=== PATIENT | female | born 1990 | race Asian ===

== ENCOUNTER 2018-02-19 13:58 | Inpatient (IN) | payer OTHER ==
[2018-02-19 14:34] VITALS: BMI 31.1
--- NOTE | 2018-02-19 15:21 | HP ---
COWS - Scale Resting Pulse: 1= [place] 81-100 Sweatin= Chills/Flushing Restless Observation: 3= Extraneous Movement Pupil Size: 2= Moderately Dilated Bone or Joint Aches: 2= Severe Diffuse Aches Runny Nose/ Eye Tearin= Runny Nose/Eyes GI Upset > 30mins: 3= Vomiting/Diarrhea Tremor Observation: 2= Slight Tremor Visible Yawning Observation: 2= >3x During Session Anxiety or Irritability: 2=Irritable/Anxious Goose Flesh Skin: 0=Smooth Skin COWS Score: 20 Admission ROS BHS - HPI Chief Complaint: i need help to stop using percocet Allergies/Adverse Reactions: Allergies Allergy/AdvReac Type Severity Reaction Status Date / Time No Known Allergies Allergy Verified 11/20/15 10:03 History of Present Illness: this 24 years old female with percocet dependence,seeking detox,withdrawal symptom,never been in detox nicotine dependence anxiety,depression,insomnia Exam Limitations: No Limitations - Ebola screening Have you been sick,other than usual withdrawal symptoms: No - Review of Systems Constitutional: Chills, Loss of Appetite, Night Sweats, Changes in sleep, Weakness EENT: reports: Tearing, Nose Congestion Respiratory: reports: No Symptoms reported Cardiac: reports: No Symptoms Reported GI: reports: Diarrhea, Nausea, Vomiting, Abdominal cramping : reports: No Symptoms Reported Musculoskeletal: reports: Back Pain, Joint Pain, Muscle Pain, Joint Stiffness Integumentary: reports: Dryness Neuro: reports: Headache, Tremors Endocrine: reports: No Symptoms Reported Hematology: reports: No Symptoms Reported Psychiatric: reports: No Sypmtoms Reported, Judgement Intact, Mood/Affect Appropiate, Anxious, Depressed (insomnia) Patient History - Patient Medical History Hx Anemia: No Hx Asthma: No Hx Chronic Obstructive Pulmonary Disease (COPD): No Hx Cancer: No Hx Cardiac Disorders: No Hx Congestive Heart Failure: No Hx Hypertension: No Hx Hypercholesterolemia: No Hx Pacemaker: No HX Cerebrovascular Accident: No Hx Seizures: No Hx Dementia: No Hx Diabetes: No Hx Gastrointestinal Disorders: No Hx Liver Disease: No Hx Genitourinary Disorders: No Hx Sexually Transmitted Disorders: No Hx Renal Disease (ESRD): No Hx Thyroid Disease: No Hx Human Immunodeficiency Virus (HIV): No (last 11/08) Hx Hepatitis C: No Hx Depression: Yes Hx Suicide Attempt: No Hx Bipolar Disorder: No Hx Schizophrenia: No Other Medical History: anxiety,depression,insomnia - Patient Surgical History Past Surgical History: No - PPD History Previous Implant?: Yes Documented Results: Negative w/o proof PPD to be Administered?: Yes - Reproductive History Patient is a Female of Child Bearing Age (11 -55 yrs old): Yes Patient : No - Smoking Cessation Smoking history: Never smoked Aproximately how many cigarettes per day: 10 Hx Chewing Tobacco Use: No Initiated information on smoking cessation: Yes 'Breaking Loose' booklet given: 02/19/18 - Substance & Tx. History Hx Alcohol Use: No Hx Substance Use: Yes Substance Use Type: Opiates Hx Substance Use Treatment: No - Substances Abused PERCOCETS Route: Oral Frequency: Daily Amount used: 20-30 PILLS Age of first use: 26 Date of Last Use: 02/17/18 Family Disease History - Family Disease History Family History: Denies Admission Physical Exam [facility] - Vital Signs Vital Signs: Vital Signs - 24 hr 02/19/18 14:30 Temperature 97.2 F L Pulse Rate 91 H Respiratory 20 Rate Blood Pressure 115/72 - Physical General Appearance: Yes: Moderate Distress, Tremorous, Irritable, Sweating, Anxious HEENTM: Yes: Normal ENT Inspection, KYUNG, Pharynx Normal Respiratory: Yes: Within Normal Limits, Lungs Clear, Normal Breath Sounds, No Respiratory Distress Neck: Yes: Within Normal Limits, Supple, Trachea in good position Breast: Yes: Breast Exam Deferred Cardiology: Yes: Within Normal Limits, Regular Rhythm, Regular Rate, S1, S2 Abdominal: Yes: Within Normal Limits, Normal Bowel Sounds, Non Tender, Flat, Soft Genitourinary: Yes: Within Normal Limits Back: Yes: Muscle Spasm Musculoskeletal: Yes: full range of Motion, Back pain, Joint Stiffness, Muscle Pain Extremities: Yes: Tremors Neurological: Yes: design technology teacher II-XII NML intact, Fully Oriented, Alert, Motor Strength 5/5 Integumentary: Yes: Dry Lymphatic: Yes: Within Normal Limits - Diagnostic (1) Opioid dependence with withdrawal Current Visit: Yes Status: Chronic (2) Nicotine dependence Current Visit: Yes Status: Chronic Qualifiers: Nicotine product type: cigarettes Substance use status: uncomplicated Qualified Code(s): F17.210 - Nicotine dependence, cigarettes, uncomplicated (3) Insomnia secondary to depression with anxiety Current Visit: Yes Status: Acute Cleared for Admission [facility] - Detox or Rehab [facility] Level of Care: Medically Managed Detox Regimen/Protocol: Methadone [facility] Breath Alcohol Content Breath Alcohol Content: 0 Urine Pregancy Test - Result Urine Test Results: Negative- NO Line Present Urine Drug Screen - Results Drug Screen Negative: No Urine Drug Screen Results: BZO-Benzodiazepines, OXY-Oxycodone
[2018-02-19] MEDS ORDERED: guaiFENesin/D-METHORPHAN HB 10 ML UNIT-DOSE CUPS PO PRN (15:38)
[2018-02-19] MEDS ORDERED: MENTHOL/PHENOL 1 EACH UD MM PRN (15:38)
[2018-02-19] MEDS ORDERED: LOPERAMIDE HCL 2 MG CAPSULE PO PRN (15:38)
[2018-02-19] MEDS ORDERED: MAGNESIUM CITRATE 300 ML BOTTLE PO PRN (15:38)
[2018-02-19] MEDS ORDERED: MAG HYDROX/AL HYDROX/SIMETH 30 ML UNIT-DOSE CUP PO PRN (15:38)
[2018-02-19] MEDS ORDERED: P-EPHED 60MG/TRIPROLIDI 2.5MG TABLET PO PRN (15:38)
[2018-02-19] MEDS ORDERED: MAGNESIUM HYDROX 2400MG/30ML ORAL SUSPENSION 30 ML CUP PO PRN (15:38)
[2018-02-19] MEDS ORDERED: ACETAMINOPHEN 325 MG TABLET (FP) PO PRN (15:38)
[2018-02-19] MEDS ORDERED: METHADONE HCL 10 MG TABLET (FOR DETOX USE ONLY) PO ONE ×2 (18:15→23:00)
[2018-02-19] MEDS: diazePAM 5 MG TABLET PO PRN ×2 (18:19→22:20)
[2018-02-19] MEDS: NICOTINE 21 MG/24 HOURS TOPICAL PATCH TD SCH (18:23)
[2018-02-19] MEDS: hydrOXYzine PAMOATE 50 MG CAPSULE (FP) PO PRN (19:59)
[2018-02-19] MEDS: IBUPROFEN 400 MG TABLET (FP) PO PRN (19:59)
[2018-02-19] MEDS ORDERED: MELATONIN 5 MG TABLETS PO PRN (22:00)
[2018-02-19] MEDS: cloNIDine HCL 0.1 MG TABLET PO SCH (22:20)
[2018-02-19] MEDS: THIAMINE HCL 100 MG TABLET (FP) PO SCH (22:20)
[2018-02-19] MEDS: CYCLOBENZAPRINE HCL 10 MG TABLET (FP) PO PRN (22:20)
[2018-02-20 00:11] LABS: URINE APPEARANCE CLEAR; URINE BILIRUBIN NEGATIVE (<2.0 mg/dL); URINE COLOR DKYELLOW; URINE GLUCOSE (UA) NEGATIVE (NEGATIVE); URINE KETONE NEGATIVE (NEGATIVE); URINE LEUK ESTERASE NEGATIVE (NEGATIVE); URINE NITRITE NEGATIVE (NEGATIVE); URINE PROTEIN NEGATIVE (NEGATIVE); URINE UROBILINOGEN NEGATIVE mg/dL (0.2-1.0)
[2018-02-20] MEDS ORDERED: METHADONE HCL 10 MG TABLET (FOR DETOX USE ONLY) PO ONE (10:00)
[2018-02-20 10:21] LABS: HEMATOCRIT 40.4 % (32.4-45.2); HEMOGLOBIN 13.4 GM/dL (10.7-15.3); MCH 29.1 pg (25.7-33.7); MCHC 33.1 g/dl (32.0-36.0); MEAN CELL VOLUME 87.8 fl (80-96); MEAN PLT VOLUME 7.9 fl (7.5-11.1); PLATELET COUNT 205 K/MM3 (134-434); RDW 14.3 % (11.6-15.6); WHITE BLOOD COUNT 6.9 K/mm3 (4.0-10.0)
[2018-02-20] MEDS: CYCLOBENZAPRINE HCL 10 MG TABLET (FP) PO PRN ×2 (10:27→22:10)
[2018-02-20] MEDS: diazePAM 5 MG TABLET PO PRN ×3 (10:27→22:11)
[2018-02-20] MEDS: cloNIDine HCL 0.1 MG TABLET PO SCH ×2 (10:27→22:10)
[2018-02-20] MEDS: PRENATAL VITAMINS W/ FOLIC ACID TABLET (FP) PO SCH (10:27)
[2018-02-20] MEDS: NICOTINE 21 MG/24 HOURS TOPICAL PATCH TD SCH (10:28)
--- NOTE | 2018-02-20 10:37 | PN ---
S COWS - Scale Resting Pulse: 0= [place] 80 or Below Sweatin= Chills/Flushing Restless Observation: 1= Difficult to Sit Still Pupil Size: 2= Moderately Dilated Bone or Joint Aches: 2= Severe Diffuse Aches Runny Nose/ Eye Tearin= Nasal Congestion GI Upset > 30mins: 2= Nausea/Diarrhea Tremor Observation of Outstretched Hands: 2= Slight Tremor Visible Yawning Observation: 2= >3x During Session Anxiety or Irritability: 2=Irritable/Anxious Goose Flesh Skin: 0=Smooth Skin COWS Score: 15 BHS Progress Note (SOAP) Subjective: joints pian body aches tremor sweat GI distress anxiousness muscle cramping Objective: 02/20/18 10:39 Vital Signs Temperature 98.1 F 02/20/18 09:30 Pulse Rate 97 H 02/20/18 09:30 Respiratory Rate 18 02/20/18 09:30 Blood Pressure 107/53 02/20/18 09:30 O2 Sat by Pulse Oximetry (%) Laboratory Last Values WBC 6.9 K/mm3 (4.0-10.0) 02/20/18 07:30 RBC 4.60 M/mm3 (3.60-5.2) 02/20/18 07:30 Hgb 13.4 GM/dL (10.7-15.3) 02/20/18 07:30 Hct 40.4 % (32.4-45.2) 02/20/18 07:30 MCV 87.8 fl (80-96) 02/20/18 07:30 MCH 29.1 pg (25.7-33.7) 02/20/18 07:30 MCHC 33.1 g/dl (32.0-36.0) 02/20/18 07:30 RDW 14.3 % (11.6-15.6) 02/20/18 07:30 Plt Count 205 K/MM3 (134-434) 02/20/18 07:30 MPV 7.9 fl (7.5-11.1) 02/20/18 07:30 Urine Color Dkyellow 02/19/18 Unknown Urine Appearance Clear 02/19/18 Unknown Urine pH 6.0 (5.0-8.0) 02/19/18 Unknown Ur Specific [place] 1.024 (1.001-1.035) 02/19/18 Unknown Urine Protein Negative (NEGATIVE) 02/19/18 Unknown Urine Glucose (UA) Negative (NEGATIVE) 02/19/18 Unknown Urine Ketones Negative (NEGATIVE) 02/19/18 Unknown Urine Blood Negative (NEGATIVE) 02/19/18 Unknown Urine Nitrite Negative (NEGATIVE) 02/19/18 Unknown Urine Bilirubin Negative (<2.0 mg/dL) 02/19/18 Unknown Urine Urobilinogen Negative mg/dL (0.2-1.0) 02/19/18 Unknown Ur Leukocyte Esterase Negative (NEGATIVE) 02/19/18 Unknown lab noted Assessment: 02/20/18 10:39 withdrawal sx Plan: continue detox
--- NOTE | 2018-02-20 12:18 | EKG ---
Test Reason : Blood Pressure : / mmHG Vent. Rate : 082 BPM Atrial Rate : 082 BPM P-R Int : 156 ms QRS Dur : 092 ms QT Int : 374 ms P-R-T Axes : 041 -02 033 degrees QTc Int : 436 ms NORMAL SINUS RHYTHM MINIMAL VOLTAGE CRITERIA FOR LVH, MAY BE NORMAL VARIANT BORDERLINE ECG NO PREVIOUS ECGS AVAILABLE Confirmed by BROOKLYN COOL MD ([id number]) on 02/20/2018 12:17:49 PM Referred By: Kendal Vasquez Confirmed By:BROOKLYN COOL MD
[2018-02-20 12:21] LABS: CHLORIDE 107 mmol/L (98-107); POTASSIUM 4.2 mmol/L (3.5-5.1); SODIUM 144 mmol/L (136-145)
[2018-02-20 12:27] LABS: ALBUMIN 3.6 g/dl (3.4-5.0); ALK PHOS 48 U/L (45-117); ANION GAP 10 MMOL/L (8-16); BILIRUBIN,TOTAL 0.5 mg/dL (0.2-1.0); BLOOD UREA NITROGEN 17 mg/dL (7-18); CALCIUM 8.7 mg/dL (8.5-10.1); CO2 27 mmol/L (21-32); CREATININE 0.4 mg/dL (0.55-1.02); GLUCOSE,RANDOM 85 mg/dL (74-106); SGOT/AST 12 U/L (15-37); SGPT/ALT 21 U/L (12-78); TOT PROT 6.5 g/dl (6.4-8.2)
--- NOTE | 2018-02-20 15:24 | CONSULT ---
[facility] Psychiatric Consult - Data Date of interview: 02/20/18 Admission source: [facility] Identifying data: Patient is a 27 year old female, without kids, unemployed, and currently living with sister. This is patient's first admission to detox at [facility]. Pt. admitted to for opiate dependence. Substance Abuse History: - Smoking Cessation. Smoking history: Never smoked. Aproximately how many cigarettes per day: 10. Hx Chewing Tobacco Use: No. Initiated information on smoking cessation: Yes. 'Breaking Loose' booklet given : 02/19/18. - Substance & Tx. History. Hx Alcohol Use: No. Hx Substance Use: Yes. Substance Use Type: Opiates. Hx Substance Use Treatment: No. - Substances Abused. PERCOCETS. Route: Oral. Frequency: Daily. Amount used : 20-30 PILLS. Age of first use: 26. Date of Last Use: 02/17/18 Medical History: denies Psychiatric History: Patient denies h/o psychiatric hospitalization, outpatient care, and suicide attempt. Pt. reports seeing an chimney mechanic 2 years ago who started patient on paxil for her anxiety. Pt. discontinued medication due it "not working." During this time, patient was also prescribed ambien for insomnia but was only given a week supply. Pt. currently presents with anxiety and insomnia. Physical/Sexual Abuse/Trauma History: denies. Mental Status Exam - Mental Status Exam Alert and Oriented to: Time, Place, Person Cognitive Function: Good Patient Appearance: Well Groomed Mood: Anxious Affect: Mood Congruent Patient Behavior: Cooperative Speech Pattern: Appropriate Voice Loudness: Normal Thought Process: Goal Oriented Thought Disorder: Not Present Hallucinations: Denies Suicidal Ideation: Denies Homicidal Ideation: Denies Insight/Judgement: Poor Sleep: Poorly Appetite: Fair Muscle strength/Tone: Normal Gait/Station: Normal Psychiatric Findings - Problem List ([place] 1, 2,3) (1) Nicotine dependence Current Visit: Yes Status: Chronic (2) Opioid dependence with withdrawal Current Visit: Yes Status: Acute (3) Insomnia Current Visit: Yes Status: Acute (4) Anxiety Current Visit: Yes Status: Acute - Initial Treatment Plan Initial Treatment Plan: Psychoeducation provided. Detoxification in progress. Ambien 5mg qhs prn ordered for insomnia + Vistaril 50mg q4h ordered by SENIOR PRODUCT DEVELOPMENT ENGINEER. Benefits and side effects discussed. Pt. made aware of the risk of parasomnia when accepting ambien. Verbal consent given.
[2018-02-20] MEDS: hydrOXYzine PAMOATE 50 MG CAPSULE (FP) PO PRN (15:40)
[2018-02-20] MEDS: IBUPROFEN 400 MG TABLET (FP) PO PRN (15:41)
[2018-02-20] MEDS: NICOTINE POLACRILEX 2 MG GUM BUC PRN (21:46)
[2018-02-20] MEDS: ZOLPIDEM TARTRATE 5 MG TABLET PO PRN (22:10)
[2018-02-20] MEDS: THIAMINE HCL 100 MG TABLET (FP) PO SCH (22:11)
[2018-02-21] MEDS ORDERED: METHADONE HCL 5 MG TABLET (FOR DETOX USE ONLY) PO ONE (10:00)
[2018-02-21] MEDS: cloNIDine HCL 0.1 MG TABLET PO SCH ×2 (10:29→22:04)
[2018-02-21] MEDS: CYCLOBENZAPRINE HCL 10 MG TABLET (FP) PO PRN ×2 (10:29→22:04)
[2018-02-21] MEDS: hydrOXYzine PAMOATE 50 MG CAPSULE (FP) PO PRN (10:29)
[2018-02-21] MEDS: PRENATAL VITAMINS W/ FOLIC ACID TABLET (FP) PO SCH (10:29)
[2018-02-21] MEDS: diazePAM 5 MG TABLET PO PRN ×3 (10:29→22:04)
[2018-02-21] MEDS: NICOTINE 21 MG/24 HOURS TOPICAL PATCH TD SCH (10:29)
[2018-02-21] MEDS: NICOTINE POLACRILEX 2 MG GUM BUC PRN ×4 (10:30→22:07)
--- NOTE | 2018-02-21 10:46 | PN ---
BHS COWS - Scale Resting Pulse: 0= [place] 80 or Below Sweatin=Flushed/Facial Moisture Restless Observation: 1= Difficult to Sit Still Pupil Size: 1= Pupils >than Normal Bone or Joint Aches: 2= Severe Diffuse Aches Runny Nose/ Eye Tearin= Nasal Congestion GI Upset > 30mins: 1= Stomach Cramp Tremor Observation of Outstretched Hands: 1= Tremor [place], Not Seen Yawning Observation: 0= None Anxiety or Irritability: 1=Feels Anxious/Irritable Goose Flesh Skin: 0=Smooth Skin COWS Score: 10 BHS Progress Note (SOAP) Subjective: Better, but sweats and leg pains Objective: 02/21/18 10:44 Vital Signs Temperature 97.2 F L 02/21/18 06:00 Pulse Rate 66 02/21/18 06:00 Respiratory Rate 18 02/21/18 06:00 Blood Pressure 90/68 02/21/18 06:00 O2 Sat by Pulse Oximetry (%) Laboratory Tests 02/19/18 02/20/18 02/20/18 Unknown 07:30 07:30 WBC 6.9 RBC 4.60 Hgb 13.4 Hct 40.4 MCV 87.8 MCH 29.1 MCHC 33.1 RDW 14.3 Plt Count 205 MPV 7.9 Sodium 144 Potassium 4.2 Chloride 107 Carbon Dioxide 27 Anion Gap 10 BUN 17 Creatinine 0.4 L Creat Clearance w eGFR > 60 Random Glucose 85 Calcium 8.7 Total Bilirubin 0.5 AST 12 L ALT 21 Alkaline Phosphatase 48 Total Protein 6.5 Albumin 3.6 Urine Color Dkyellow Urine Appearance Clear Urine pH 6.0 Ur Specific [place] 1.024 Urine Protein Negative Urine Glucose (UA) Negative Urine Ketones Negative Urine Blood Negative Urine Nitrite Negative Urine Bilirubin Negative Urine Urobilinogen Negative Ur Leukocyte Esterase Negative RPR Titer 02/20/18 07:30 WBC RBC Hgb Hct MCV MCH MCHC RDW Plt Count MPV Sodium Potassium Chloride Carbon Dioxide Anion Gap BUN Creatinine Creat Clearance w eGFR Random Glucose Calcium Total Bilirubin AST ALT Alkaline Phosphatase Total Protein Albumin Urine Color Urine Appearance Urine pH Ur Specific [place] Urine Protein Urine Glucose (UA) Urine Ketones Urine Blood Urine Nitrite Urine Bilirubin Urine Urobilinogen Ur Leukocyte Esterase RPR Titer Nonreactive pt aox3 in nad ambulating Assessment: 02/21/18 10:44 withdrawal sx's Plan: cont detox increase fluids flexeril 5mg tid motrin prn
[2018-02-21] MEDS: IBUPROFEN 400 MG TABLET (FP) PO PRN (22:04)
[2018-02-21] MEDS: ZOLPIDEM TARTRATE 5 MG TABLET PO PRN (22:04)
[2018-02-21] MEDS: THIAMINE HCL 100 MG TABLET (FP) PO SCH (22:04)
[2018-02-22] MEDS ORDERED: METHADONE HCL 5 MG TABLET (FOR DETOX USE ONLY) PO ONE (10:00)
[2018-02-22] MEDS: CYCLOBENZAPRINE HCL 10 MG TABLET (FP) PO PRN ×2 (10:16→22:35)
[2018-02-22] MEDS: diazePAM 5 MG TABLET PO PRN (10:16)
[2018-02-22] MEDS: PRENATAL VITAMINS W/ FOLIC ACID TABLET (FP) PO SCH (10:16)
[2018-02-22] MEDS: cloNIDine HCL 0.1 MG TABLET PO SCH ×2 (10:16→22:35)
[2018-02-22] MEDS: NICOTINE 21 MG/24 HOURS TOPICAL PATCH TD SCH (10:18)
[2018-02-22] MEDS: NICOTINE POLACRILEX 2 MG GUM BUC PRN ×2 (10:18→20:50)
--- NOTE | 2018-02-22 14:37 | PN ---
BHS Progress Note (SOAP) Subjective: joints pain body aches sweat tremor trouble sleep at night irritable Objective: 02/22/18 14:36 Vital Signs Temperature 97.3 F L 02/22/18 13:52 Pulse Rate 92 H 02/22/18 13:52 Respiratory Rate 18 02/22/18 13:52 Blood Pressure 113/68 02/22/18 13:52 O2 Sat by Pulse Oximetry (%) Laboratory Last Values WBC 6.9 K/mm3 (4.0-10.0) 02/20/18 07:30 RBC 4.60 M/mm3 (3.60-5.2) 02/20/18 07:30 Hgb 13.4 GM/dL (10.7-15.3) 02/20/18 07:30 Hct 40.4 % (32.4-45.2) 02/20/18 07:30 MCV 87.8 fl (80-96) 02/20/18 07:30 MCH 29.1 pg (25.7-33.7) 02/20/18 07:30 MCHC 33.1 g/dl (32.0-36.0) 02/20/18 07:30 RDW 14.3 % (11.6-15.6) 02/20/18 07:30 Plt Count 205 K/MM3 (134-434) 02/20/18 07:30 MPV 7.9 fl (7.5-11.1) 02/20/18 07:30 Sodium 144 mmol/L (136-145) 02/20/18 07:30 Potassium 4.2 mmol/L (3.5-5.1) 02/20/18 07:30 Chloride 107 mmol/L (98-107) 02/20/18 07:30 Carbon Dioxide 27 mmol/L (21-32) 02/20/18 07:30 Anion Gap 10 MMOL/L (8-16) 02/20/18 07:30 BUN 17 mg/dL (7-18) 02/20/18 07:30 Creatinine 0.4 mg/dL (0.55-1.02) L 02/20/18 07:30 Creat Clearance w eGFR > 60 (>60) 02/20/18 07:30 Random Glucose 85 mg/dL (74-106) 02/20/18 07:30 Calcium 8.7 mg/dL (8.5-10.1) 02/20/18 07:30 Total Bilirubin 0.5 mg/dL (0.2-1.0) 02/20/18 07:30 AST 12 U/L (15-37) L 02/20/18 07:30 ALT 21 U/L (12-78) 02/20/18 07:30 Alkaline Phosphatase 48 U/L (45-117) 02/20/18 07:30 Total Protein 6.5 g/dl (6.4-8.2) 02/20/18 07:30 Albumin 3.6 g/dl (3.4-5.0) 02/20/18 07:30 Urine Color Dkyellow 02/19/18 Unknown Urine Appearance Clear 02/19/18 Unknown Urine pH 6.0 (5.0-8.0) 02/19/18 Unknown Ur Specific [place] 1.024 (1.001-1.035) 02/19/18 Unknown Urine Protein Negative (NEGATIVE) 02/19/18 Unknown Urine Glucose (UA) Negative (NEGATIVE) 02/19/18 Unknown Urine Ketones Negative (NEGATIVE) 02/19/18 Unknown Urine Blood Negative (NEGATIVE) 02/19/18 Unknown Urine Nitrite Negative (NEGATIVE) 02/19/18 Unknown Urine Bilirubin Negative (<2.0 mg/dL) 02/19/18 Unknown Urine Urobilinogen Negative mg/dL (0.2-1.0) 02/19/18 Unknown Ur Leukocyte Esterase Negative (NEGATIVE) 02/19/18 Unknown RPR Titer Nonreactive (NONREACTIVE) 02/20/18 07:30 lab noted Assessment: 02/22/18 14:37 withdrawal sx Plan: continue detox
[2018-02-22] MEDS: THIAMINE HCL 100 MG TABLET (FP) PO SCH (22:35)
[2018-02-22] MEDS: hydrOXYzine PAMOATE 50 MG CAPSULE (FP) PO PRN (22:39)
[2018-02-22] MEDS: ZOLPIDEM TARTRATE 5 MG TABLET PO PRN (22:39)
[2018-02-23] MEDS ORDERED: METHADONE HCL 10 MG TABLET (FOR DETOX USE ONLY) PO ONE (10:00)
[2018-02-23] MEDS: NICOTINE 21 MG/24 HOURS TOPICAL PATCH TD SCH (10:13)
[2018-02-23] MEDS: hydrOXYzine PAMOATE 50 MG CAPSULE (FP) PO PRN ×3 (10:13→22:13)
[2018-02-23] MEDS: cloNIDine HCL 0.1 MG TABLET PO SCH ×2 (10:13→22:11)
[2018-02-23] MEDS: PRENATAL VITAMINS W/ FOLIC ACID TABLET (FP) PO SCH (10:13)
[2018-02-23] MEDS: CYCLOBENZAPRINE HCL 10 MG TABLET (FP) PO PRN ×3 (10:13→23:26)
[2018-02-23] MEDS: NICOTINE POLACRILEX 2 MG GUM BUC PRN ×2 (10:14→17:43)
--- NOTE | 2018-02-23 12:32 | PN ---
BHS Progress Note (SOAP) Subjective: social in day room with peers feeling better able to sleep at night less body aches no tremor Objective: 02/23/18 12:31 Vital Signs Temperature 97.9 F 02/23/18 09:38 Pulse Rate 85 02/23/18 09:38 Respiratory Rate 16 02/23/18 09:38 Blood Pressure 121/71 02/23/18 09:38 O2 Sat by Pulse Oximetry (%) Laboratory Last Values WBC 6.9 K/mm3 (4.0-10.0) 02/20/18 07:30 RBC 4.60 M/mm3 (3.60-5.2) 02/20/18 07:30 Hgb 13.4 GM/dL (10.7-15.3) 02/20/18 07:30 Hct 40.4 % (32.4-45.2) 02/20/18 07:30 MCV 87.8 fl (80-96) 02/20/18 07:30 MCH 29.1 pg (25.7-33.7) 02/20/18 07:30 MCHC 33.1 g/dl (32.0-36.0) 02/20/18 07:30 RDW 14.3 % (11.6-15.6) 02/20/18 07:30 Plt Count 205 K/MM3 (134-434) 02/20/18 07:30 MPV 7.9 fl (7.5-11.1) 02/20/18 07:30 Sodium 144 mmol/L (136-145) 02/20/18 07:30 Potassium 4.2 mmol/L (3.5-5.1) 02/20/18 07:30 Chloride 107 mmol/L (98-107) 02/20/18 07:30 Carbon Dioxide 27 mmol/L (21-32) 02/20/18 07:30 Anion Gap 10 MMOL/L (8-16) 02/20/18 07:30 BUN 17 mg/dL (7-18) 02/20/18 07:30 Creatinine 0.4 mg/dL (0.55-1.02) L 02/20/18 07:30 Creat Clearance w eGFR > 60 (>60) 02/20/18 07:30 Random Glucose 85 mg/dL (74-106) 02/20/18 07:30 Calcium 8.7 mg/dL (8.5-10.1) 02/20/18 07:30 Total Bilirubin 0.5 mg/dL (0.2-1.0) 02/20/18 07:30 AST 12 U/L (15-37) L 02/20/18 07:30 ALT 21 U/L (12-78) 02/20/18 07:30 Alkaline Phosphatase 48 U/L (45-117) 02/20/18 07:30 Total Protein 6.5 g/dl (6.4-8.2) 02/20/18 07:30 Albumin 3.6 g/dl (3.4-5.0) 02/20/18 07:30 Urine Color Dkyellow 02/19/18 Unknown Urine Appearance Clear 02/19/18 Unknown Urine pH 6.0 (5.0-8.0) 02/19/18 Unknown Ur Specific [place] 1.024 (1.001-1.035) 02/19/18 Unknown Urine Protein Negative (NEGATIVE) 02/19/18 Unknown Urine Glucose (UA) Negative (NEGATIVE) 02/19/18 Unknown Urine Ketones Negative (NEGATIVE) 02/19/18 Unknown Urine Blood Negative (NEGATIVE) 02/19/18 Unknown Urine Nitrite Negative (NEGATIVE) 02/19/18 Unknown Urine Bilirubin Negative (<2.0 mg/dL) 02/19/18 Unknown Urine Urobilinogen Negative mg/dL (0.2-1.0) 02/19/18 Unknown Ur Leukocyte Esterase Negative (NEGATIVE) 02/19/18 Unknown RPR Titer Nonreactive (NONREACTIVE) 02/20/18 07:30 lab noted Assessment: 02/23/18 12:31 mild withdrawal sx Plan: medically supervised detox
[2018-02-23] MEDS: THIAMINE HCL 100 MG TABLET (FP) PO SCH (22:11)
[2018-02-24] MEDS: hydrOXYzine PAMOATE 50 MG CAPSULE (FP) PO PRN (05:32)
[2018-02-24] MEDS ORDERED: METHADONE HCL 5 MG TABLET (FOR DETOX USE ONLY) PO ONE (06:00)
[2018-02-24 06:28] VITALS: BP 129/85; PULSE 70; TEMP 97.2
[2018-02-24] MEDS: NICOTINE POLACRILEX 2 MG GUM BUC PRN (07:02)
[2018-02-24] MEDS: CYCLOBENZAPRINE HCL 10 MG TABLET (FP) PO PRN (07:04)
--- NOTE | 2018-02-24 08:33 | DS ---
[facility] Detox Discharge Summary Admission Date: 02/19/18 Discharge Date: 02/24/18 - History Present History: Opioid Dependence Additional Comments: 27 years old female admitted 02/19/18 for opiate withdrawal sx completed opiate detox regimen tolerate well denies opiate withdrawal sx alert oriented x 3 no acute distress aftercare [facility] - Physical Exam Results Vital Signs: Vital Signs Temperature 97.2 F L 02/24/18 06:00 Pulse Rate 70 02/24/18 06:00 Respiratory Rate 18 02/24/18 06:00 Blood Pressure 129/85 02/24/18 06:00 O2 Sat by Pulse Oximetry (%) Pertinent Admission Physical Exam Findings: opiate withdrawal sx Vital Signs Temperature 97.2 F L 02/24/18 06:00 Pulse Rate 70 02/24/18 06:00 Respiratory Rate 18 02/24/18 06:00 Blood Pressure 129/85 02/24/18 06:00 O2 Sat by Pulse Oximetry (%) Laboratory Last Values WBC 6.9 K/mm3 (4.0-10.0) 02/20/18 07:30 RBC 4.60 M/mm3 (3.60-5.2) 02/20/18 07:30 Hgb 13.4 GM/dL (10.7-15.3) 02/20/18 07:30 Hct 40.4 % (32.4-45.2) 02/20/18 07:30 MCV 87.8 fl (80-96) 02/20/18 07:30 MCH 29.1 pg (25.7-33.7) 02/20/18 07:30 MCHC 33.1 g/dl (32.0-36.0) 02/20/18 07:30 RDW 14.3 % (11.6-15.6) 02/20/18 07:30 Plt Count 205 K/MM3 (134-434) 02/20/18 07:30 MPV 7.9 fl (7.5-11.1) 02/20/18 07:30 Sodium 144 mmol/L (136-145) 02/20/18 07:30 Potassium 4.2 mmol/L (3.5-5.1) 02/20/18 07:30 Chloride 107 mmol/L (98-107) 02/20/18 07:30 Carbon Dioxide 27 mmol/L (21-32) 02/20/18 07:30 Anion Gap 10 MMOL/L (8-16) 02/20/18 07:30 BUN 17 mg/dL (7-18) 02/20/18 07:30 Creatinine 0.4 mg/dL (0.55-1.02) L 02/20/18 07:30 Creat Clearance w eGFR > 60 (>60) 02/20/18 07:30 Random Glucose 85 mg/dL (74-106) 02/20/18 07:30 Calcium 8.7 mg/dL (8.5-10.1) 02/20/18 07:30 Total Bilirubin 0.5 mg/dL (0.2-1.0) 02/20/18 07:30 AST 12 U/L (15-37) L 02/20/18 07:30 ALT 21 U/L (12-78) 02/20/18 07:30 Alkaline Phosphatase 48 U/L (45-117) 02/20/18 07:30 Total Protein 6.5 g/dl (6.4-8.2) 02/20/18 07:30 Albumin 3.6 g/dl (3.4-5.0) 02/20/18 07:30 Urine Color Dkyellow 02/19/18 Unknown Urine Appearance Clear 02/19/18 Unknown Urine pH 6.0 (5.0-8.0) 02/19/18 Unknown Ur Specific [place] 1.024 (1.001-1.035) 02/19/18 Unknown Urine Protein Negative (NEGATIVE) 02/19/18 Unknown Urine Glucose (UA) Negative (NEGATIVE) 02/19/18 Unknown Urine Ketones Negative (NEGATIVE) 02/19/18 Unknown Urine Blood Negative (NEGATIVE) 02/19/18 Unknown Urine Nitrite Negative (NEGATIVE) 02/19/18 Unknown Urine Bilirubin Negative (<2.0 mg/dL) 02/19/18 Unknown Urine Urobilinogen Negative mg/dL (0.2-1.0) 02/19/18 Unknown Ur Leukocyte Esterase Negative (NEGATIVE) 02/19/18 Unknown RPR Titer Nonreactive (NONREACTIVE) 02/20/18 07:30 lab noted - Treatment Hospital Course: Detox Protocol Followed, Detoxed Safely, Responded well, Discharged Condition Good, Rehab Referral Accepted Patient has Accepted a Rehab Referral to: [facility] - Medication Discharge Medications: Ambulatory Orders Ondansetron [Zofran Odt -] 4 mg SL TID PRN #21 od.tablet 11/20/15 NK [No Known Home Medication] 02/19/18 - Diagnosis (1) Anxiety Status: Suspected (2) Nicotine dependence Status: Acute Qualifiers: Nicotine product type: cigarettes Substance use status: in withdrawal Qualified Code(s): F17.213 - Nicotine dependence, cigarettes, with withdrawal (3) Opioid dependence with withdrawal Status: Acute - AMA Did Patient Leave Against Medical Advice: No
== END 2018-02-24 08:58 | disposition home or self-care (01) | DRG 773 ==
LOC: YASAS 13:58 → MERGE 15:48 → Y6N 15:48
PROC: HZ2ZZZZ Detoxification Services for Substance Abuse Treatment (ICD-10-PCS; principal; 2018-02-19)
DX: F11.23 Opioid dependence with withdrawal (principal); F17.213 Nicotine dependence, cigarettes, with withdrawal; F41.9 Anxiety disorder, unspecified; F51.05 Insomnia due to other mental disorder
CPT/HCPCS: 36415; 80053; 81003; 85027; 86593; 93005; 93010; J0735